=== PATIENT | male | born 1985 | race Two or more races ===

== ENCOUNTER 2020-03-15 05:55 | Emergency (ER) | payer BC ==
[~2020-03-15] VITALS: Ht 180.3 cm; Wt 145.1 kg
[2020-03-15 06:54] LABS: Basophils # (auto) 0 10 ^3/uL (0-0.2); Basophils % (auto) 0.5 % (0.0-2.0); Eosinophils # (auto) 0.2 10 ^3/uL (0-0.8); Eosinophils % (auto) 1.7 % (0.0-7.0); Hematocrit 45.7 % (41.0-53.0); Lymphocytes # (auto) 1.8 10 ^3/uL (0.4-5.4); Lymphocytes % (auto) 18.1 % (10.0-50.0); Mean Corpuscular Hemoglobin 28.2 pg (28.0-32.0); Mean Corpuscular Hgb Conc. 32.8 g/dL (32.0-36.0); Mean Corpuscular Volume 85.9 fL (80.0-100.0); Monocytes # (auto) 0.6 10 ^3/uL (0-1.3); Monocytes % (auto) 5.6 % (0.0-12.0); Neutrophils # (auto) 7.4 10 ^3/uL (1.6-8.6); Neutrophils % (auto) 74.1 % (37.0-80.0); Nucleated Red Blood Cells % 0.1 %; Platelet Count (auto) 123 10^3/uL (140-450); Red Blood Cells 5.32 10^6/uL (4.5-5.90); Red Cell Distribution Width 14.2 % (11.8-14.3)
[2020-03-15 07:12] LABS: Albumin 3.5 g/dL (3.4-5.0); BUN/Creatinine Ratio 14.5; Calcium 8.6 mg/dL (8.5-10.1)
[2020-03-15 07:15] LABS: Bilirubin, Total 0.4 mg/dL (0.2-1.0)
[2020-03-15 08:24] LABS: Urine Bacteria FEW /hpf (None Seen); Urine Blood 3+ /uL (Negative); Urine Hyaline Cast FEW /lpf (0 - 2); Urine Mucus FEW (None Seen); Urine Specific Gravity 1.018 (1.001-1.035); Urine WBC 4 /hpf (0 - 3)
[2020-03-15 09:45] VITALS: BP 152/81
== END 2020-03-15 09:53 | disposition home or self-care (01) ==
LOC: ER 05:55
DX: R10.9 Unspecified abdominal pain (principal); R73.9 Hyperglycemia, unspecified
CPT/HCPCS: 36415; 74176; 76870; 80053; 81001; 85025

== ENCOUNTER 2020-09-18 08:51 | Emergency (ER) | payer BC, OTHER ==
[~2020-09-18] VITALS: Ht 180.3 cm; Wt 145.1 kg
[2020-09-18 09:11] VITALS: BP 149/86
== END 2020-09-18 10:04 | disposition home or self-care (01) ==
LOC: ER 08:51
DX: S22.42XA Multiple fractures of ribs, left side, initial encounter for closed fracture (principal); S09.90XA Unspecified injury of head, initial encounter; V49.9XXA Car occupant (driver) (passenger) injured in unspecified traffic accident, initial encounter; Y93.89 Activity, other specified; Y92.89 Other specified places as the place of occurrence of the external cause; Y99.8 Other external cause status
CPT/HCPCS: 70450; 71046; 71250